=== PATIENT | male | born 1965 | race Two or more races ===

== ENCOUNTER 2020-06-19 18:22 | Emergency (ER) | payer MEDICAID ==
[~2020-06-19] VITALS: Ht 160 cm; Wt 70.3 kg
--- NOTE | 2020-06-19 18:39 | NUR ---
PT IS IN ROOM #2B. DR VILLA EVALUATED THE PT.
--- NOTE | 2020-06-19 19:10 | NUR ---
First contact with pt, alert and verbally responsive. Assumed care from Mazin JEONG. Lab just drawn labs, Chest Xray done, pending DAWSON, radiology notified.
--- NOTE | 2020-06-19 19:12 | NUR ---
PT UNABLE TO RECALL NAMES AND DOSAGES OF MEDICATIONS FOR BP AND EDEMA.
[2020-06-19 19:29] LABS: BASOPHILS % (AUTO) 1.1 % (0.0-2.0); EOSINOPHILS # (AUTO) 0.2 K/uL (0.0-0.7); EOSINOPHILS % (AUTO) 4.6 % (0.0-7.0); HEMATOCRIT 26.2 % (36.7-47.1); HEMOGLOBIN 8.6 g/dL (12.5-16.3); LYMPHOCYTES # (AUTO) 0.7 K/uL (20.0-40.0); LYMPHOCYTES % (AUTO) 17.4 % (20.5-51.5); MEAN CORPUSCULAR HEMOGLOBIN 24.2 uug (23.8-33.4); MEAN CORPUSCULAR HGB CONC 33 g/dL (32.5-36.3); MONOCYTES # (AUTO) 0.6 K/uL (2.0-10.0); MONOCYTES % (AUTO) 15.5 % (0.0-11.0); NEUTROPHILS # (AUTO) 2.4 K/uL (1.8-8.9); NEUTROPHILS % (AUTO) 61.4 % (38.5-71.5); PLATELET COUNT (AUTO) 108 K/uL (152-348); RED BLOOD CELL COUNT(AUTO) 3.54 MIL/uL (4.06-5.63); WHITE BLOOD COUNT (AUTO) 3.9 K/uL (3.6-10.2)
[2020-06-19 19:34] LABS: CREATININE 0.9 mg/dL (0.6-1.3); POTASSIUM 3.1 mmol/L (3.5-5.1)
--- NOTE | 2020-06-19 19:39 | NUR ---
DAWSON barton at bedside.
[2020-06-19 19:46] LABS: BILIRUBIN,DIRECT 0.6 mg/dL (0.0-0.2); BILIRUBIN,TOTAL 0.8 mg/dL (0.2-1.0); TOTAL PROTEIN, SERUM 5.5 g/dL (6.4-8.2)
--- NOTE | 2020-06-19 20:12 | NUR ---
Dr Thacker s/w patient, RN in room, offered to do paracentesis to relieve him of the fluids in his abdomen. Risks and benefits explained, but pt refused. Pt is okay with diuretics.
[2020-06-19] MEDS ORDERED: FUROSEMIDE 40 MG/4 ML VIAL IV ONE (20:15)
[2020-06-19] MEDS ORDERED: POTASSIUM CHLORIDE 20 MEQ TAB.PRT.SR PO ONE (20:15)
[2020-06-19] MEDS ORDERED: FURO-151 PO (20:21)
[2020-06-19] MEDS ORDERED: POTA10CA43 PO (20:21)
[2020-06-19] MEDS ORDERED: FUROSEMIDE 40 MG/4 ML VIAL ONE (20:28)
[2020-06-19] MEDS ORDERED: POTASSIUM CHLORIDE 20 MEQ TAB.PRT.SR ONE (20:28)
--- NOTE | 2020-06-19 20:39 | NUR ---
Pt has been cleared for discharge by . Arranging transporation for patient at this time. S/w [facility] of [facility], patient will be going back to the [facility] Room 211. Latest S ambulance available at [id number].
--- NOTE | 2020-06-19 20:45 | NUR ---
Written and verbal after care instructions given. Patient verbalizes understanding of instructions. Stressed follow up with PCP or return to ER for worsening s/s. Compression stockings provided to patient. Provided him an updated time for ambulance case picker. Snacks provided and ice chips, as requested.
--- NOTE | 2020-06-19 21:22 | NUR ---
Pt resting in bed, no signs of distress
--- NOTE | 2020-06-19 23:24 | NUR ---
Pt has been picked up by EMT's from [facility], Report given to William. Patient left ED via gurney in stable condition.
[2020-06-19 23:26] VITALS: BP 135/75
[2020-06-19 23:39] LABS: BAND % (MANUAL) 1 % (0-10); EOSINOPHILS % (MANUAL) 3 % (0-8); LYMPHOCYTES % (MANUAL) 14 % (20-40); MONOCYTES % (MANUAL) 11 % (2-10); NEUTROPHILS % (MANUAL) 69 % (42-75)
== END 2020-06-19 23:27 | disposition home or self-care (01) ==
LOC: ER 18:24
DX: R60.0 Localized edema (principal); K70.31 Alcoholic cirrhosis of liver with ascites; F20.9 Schizophrenia, unspecified; Z59.0 Homelessness; E87.6 Hypokalemia; E88.09 Other disorders of plasma-protein metabolism, not elsewhere classified; D69.6 Thrombocytopenia, unspecified; D53.9 Nutritional anemia, unspecified
CPT/HCPCS: 36415; 71045; 80048; 80076; 83880; 85007; 85025; 85730; 93970; 96374; 99285; J1940; 70030-TC; A4663